=== PATIENT | male | born 2005 | race Two or more races ===

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

== ENCOUNTER 2024-05-31 22:42 | Emergency (ER) | payer MEDICAID ==
[~2024-05-31] VITALS: Ht 177.8 cm; Wt 149.0 kg
[~2024-05-31 22:42] MED LIST changes: +BACDST PO; +IBUP1TAB5 PO
[2024-05-31 22:52] VITALS: BP 117/73; RESP 24; TEMP 98.4; O2SAT 96
[2024-06-01] MEDS ORDERED: ACET500T58 PO (01:37)
[2024-06-01] MEDS ORDERED: CYCL-837 PO (01:37)
[2024-06-01 01:40] VITALS: PULSE 85
[2024-06-01] MEDS: ACETAMINOPHEN 325 MG TAB PO ONE (01:58)
== END 2024-06-01 02:39 | disposition home or self-care (01) ==
LOC: EDBD 22:42 → ER 22:42
DX: S16.1XXA Strain of muscle, fascia and tendon at neck level, initial encounter (principal); S20.219A Contusion of unspecified front wall of thorax, initial encounter; Z79.899 Other long term (current) drug therapy; V43.52XA Car driver injured in collision with other type car in traffic accident, initial encounter; Y93.I9 Activity, other involving external motion; Y92.89 Other specified places as the place of occurrence of the external cause; Y99.8 Other external cause status
CPT/HCPCS: 71046; 72125; 93005